=== PATIENT | male | born 1955 | race Hispanic/Latino ===

== ENCOUNTER 2020-04-24 12:00 | Observation (INO) | payer OTHER ==
[~2020-04-24] VITALS: Ht 170.2 cm; Wt 94.9 kg
[~2020-04-24 12:00] MED LIST: ACID REDUCER PO; ASPIRIN EC325 MG PO; DEPO-MEDROL80 MG/ML IM; FLEXERIL PO; LIPITOR40 MG PO; LISINOPRIL20 MG PO; METOPROL TAR25 MG PO; NAPROSYN500 MG PO; NIACIN500 M2 PO; PLAVIX75 MG PO; ULTRAM50 M1 PO
--- NOTE | 2020-04-24 12:20 | NUR ---
PATIENT TO ROOM 14 FOR TRAGE.
--- NOTE | 2020-04-24 12:36 | NUR ---
AT BEDSIDE. CALL GRAHAM IN REACH.
[2020-04-24 13:25] LABS: HEMATOCRIT 47.3 % (39.0-50.0); HEMOGLOBIN 16.1 g/dl (14.0-18.0); IMMATURE GRANULOCYTES 4.1 % (0.0-5.0); MEAN CELL VOLUME 88.4 fL CALC (80.0-100.0); MEAN CORPUSCULAR HGB 30.1 pG CALC (26.0-32.0); NEUT# 7.62 thou/uL (1.82-7.42); RED BLOOD COUNT 5.35 mill/uL (4.70-6.10); RED CELL DISTRI WIDTH 12.2 % (11.5-15.5)
[2020-04-24 13:40] LABS: ALKALINE PHOSPHATASE 91 u/l (38-126); ANION GAP 15 (6-22 (CALC)); BILIRUBIN, TOTAL 1.1 mg/dL (0.0-1.4); BUN 19 mg/dL (8-23); BUN/CREATININE RATIO 26 (12-20 (CALC)); CARBON DIOXIDE 25 mmol/l (22-30); CHLORIDE 95 mmol/l (95-108); CREATININE 0.8 mg/dL (0.7-1.3); GFR > 60 ML/MIN (>=60 (CALC)); GFR FOR AFR.AMER. > 60 ML/MIN (>=60 (CALC)); POTASSIUM 3.8 mmol/l (3.5-5.1); SGOT/AST 49 u/l (19-48); SODIUM 131 mmol/l (137-146)
--- NOTE | 2020-04-24 13:49 | NUR ---
RESTING QUIETLY. CALL GRAHAM IN REACH
[2020-04-24] MEDS ORDERED: FEXOFENADINE180 MG PO (14:17)
[2020-04-24] MEDS ORDERED: PRAVASTATIN20 MG PO (14:17)
[2020-04-24] MEDS ORDERED: HYDROCHLOROT12.5 MG PO (14:18)
--- NOTE | 2020-04-24 14:50 | NUR ---
PATIENT RESTING QUIETLY,AWAITING ADMISSION TO THE FLOOR.
--- NOTE | 2020-04-24 16:15 | NUR ---
Report to [facility] in SBAR format .
--- NOTE | 2020-04-24 16:15 | NUR ---
suni at bedside to evaluate.
--- NOTE | 2020-04-24 16:36 | NUR ---
PT ARRIVED TO [facility] FLOOR ROOM #289 VIA STRETCHER IN STABLE CONDITION ACCOMPANIED BY NURSEJENNIFER;VS AND ASSESSMENT WERE COMPLETED;VS WITHIN NORMAL LIMITS;ALLERGY BAND PLACED ON PT;HEART SOUNDS REGULAR IN RATE AND RHYTHM;LUNG SOUNDS WERE CLEAR THROUGHOUT AND DIMINSHED IN LOWER LOBES;RESPIRATIONS WERE EVEN AND UNLABORED ON RA;NON-PRODUCTIVE COUGH NOTED;PT HAS NO COMPLAINTS OF PAIN OTHER THAN WHEN HE COUGHS, HIS CHEST AND HEAD WILL HURT;NO EDEMA PRESENT;SKIN IS INTACT;TELE IN PLACE;#20G IV IN LAC IS RUNNING NS @100 ML/HR;IV SITE IS PATENT AND FREE OF COMPLICATIONS;SAFETY PRECAUTIONS IN PLACE;CALL LIGHT WITHIN REACH;BED IN LOWEST POSITION;WILL CONTINUE TO MONITOR.
[2020-04-24 17:27] VITALS: BP 131/85
[2020-04-24 19:00] VITALS: BP 116/78
--- NOTE | 2020-04-24 20:58 | NUR ---
PATIENT RESTING IN BED AT THIS TIME AWAKE ALERT AND ORIENTEDX3. PATIENT ON ISOLATION IN NEG PRESSURE ROOM FOR COVID. IVF NS PATENT AND INFUSING VIA LAC SITE AT 100CC/HR. SITE IS HEALTHY AT THIS TIME. TELE MONITOR IN PLACE. O2 VIA NASAL CANNULA APPLIED. O2 SAT ON RA IS 92%. LUNGS ARE CLLEAR AND DIMINISHED IN BASES. ENCOURAGED U SE OF IS Q1H WHILE AWAKE IN REPS OF 10. ENCOURAGED PRONING IF POSSIBLE. PATIENT STATES LAST BM WAS TODAY-NO DIARRHEA. DENIES ANY DIFFICULTY WITH URINATION. MEDICATED FOR DRY COUGH WITH ROBITUSSIN AC 10CC ORDERED. SAFETY PRECAUTIONS REINFORCED. CALL LIGHT IN REACH. WILL CONT TO MONITOR.
[2020-04-25] VITALS: BP 119/77
--- NOTE | 2020-04-25 | NUR ---
PATIENT RESTING IN BED AT THIS TIME WITH O2 VIA NASAL CANNULA IN PLACE. O2 SAT IS NOW 97% WITH O2 ON. TELE IS SR-83 AT THIS TIME. IVF NS PATENT AND INFUSING VIA LAC SITE AT 100CC/HR. STILL WITH NON-PRODUCTIVE EVEN AFTER ROBITUSSIN AC GIVEN. SAFETY PRECAUTIONS REINFORCED. CALL LIGHT IN REACH. WILL CONT TO MONITOR,.
[2020-04-25 04:00] VITALS: BP 137/89
--- NOTE | 2020-04-25 04:00 | NUR ---
PATIENT SITTING UP IN THE RECLINER WITH PERSISTANT DRY HACKING COUGH. O2 SATS ARE IN THE MID-HIGH 80'S. O2 REAPPLIED VIA NASAL CANNULA AT 3LPM. RESPONDED WELL TO LOW NINETY'S. MEDICATED WITH ROBITUSSIN 10CC ORDERED. SAFETY PRECAUTIONS REINFORCED. CALL LIGHT IN REACH. WILL CONT TO MONITOR.
--- NOTE | 2020-04-25 05:45 | NUR ---
PATIENT RESTING IN BED-CONT TO HAVE DRY HACKING COUGH-MEDICATED WITH ROBITUSSIN AC 10CC FOR COUGH. O2 REMAINS IN PLACE AT 2LPM. IVF PATENT AND INFUSING VIA LEFT AC SITE AT 100CC/HR. TELE MONITOR IN PLACE. INSTRUCTED ON U SE OF IS Q1H WHILE AWAKE IN REPS OF 10-ABLE TO DEMONSTRATE PROPER USE OF THE DEVICE. SAFETY PRECAUTIONS REINFORCED. CALL LIGHT IN REACH. WILL CONT TO MONITOR.
[2020-04-25 05:57] LABS: HEMATOCRIT 47.5 % (39.0-50.0); HEMOGLOBIN 15.6 g/dl (14.0-18.0); IMMATURE GRANULOCYTES 3.7 % (0.0-5.0); MEAN CELL VOLUME 90.8 fL CALC (80.0-100.0); MEAN CORPUSCULAR HGB 29.8 pG CALC (26.0-32.0); MEAN CORPUSCULAR HGB CONC 32.8 g/dL CAL (32.0-36.0); NEUT# 4.48 thou/uL (1.82-7.42); RED BLOOD COUNT 5.23 mill/uL (4.70-6.10); RED CELL DISTRI WIDTH 12.2 % (11.5-15.5)
[2020-04-25 06:19] LABS: ALBUMIN 3.4 g/dL (3.2-5.0); ALKALINE PHOSPHATASE 70 u/l (38-126); BUN 21 mg/dL (8-23); BUN/CREATININE RATIO 33 (12-20 (CALC)); C-REACTIVE PROTEIN 6.8 mg/dL (0-0.9); CARBON DIOXIDE 23 mmol/l (22-30); CHLORIDE 102 mmol/l (95-108); CREATININE 0.6 mg/dL (0.7-1.3); GFR > 60 ML/MIN (>=60 (CALC)); GFR FOR AFR.AMER. > 60 ML/MIN (>=60 (CALC)); SGOT/AST 33 u/l (19-48); SODIUM 134 mmol/l (137-146); TOTAL PROTEIN 6.9 g/dL (6.3-8.2)
[2020-04-25 06:33] LABS: ANION GAP 15 (6-22 (CALC)); POTASSIUM 5.6 mmol/l (3.5-5.1)
--- NOTE | 2020-04-25 07:00 | NUR ---
PT REPORT RECEIVED FROM NIGHT NURSEALICE.
[2020-04-25 08:37] VITALS: BP 142/88
--- NOTE | 2020-04-25 08:45 | NUR ---
PT WAS FOUND RESTING IN BED IN SEMI-FOWLERS POSITION;PT IS A&OX3;VS AND ASSESSMENT WERE COMPLETED;VS WERE WITHIN NORMAL LIMITS WITH THE EXCEPTION OF HR 102;MORNING MEDICATIONS WERE GIVEN AT THIS TIME;PT REPORTS NO PAIN;HEART SOUNDS ARE REGULAR IN RATE AND RHYTHM;LUNG SOUNDS ARE CLEAR AND DIMINSHED IN LOWER LOBES;RESPIRATIONS ARE EVEN AND UNLABORED ON 2L O2 VIA NC WITH SAT OF 96%;PT HAS A NON-PRODUCTIVE COUGH NOTED;TELE IS IN PLACE READING SR @65BPM;#20G IV IN LAC RUNNING NS @100ML/HR;IV SITE IS FREE OF COMPLICATIONS;SAFETY PRECAUTIONS IN PLACE;CALL LIGHT WITHIN REACH;BED IN LOWEST POSITON;WILL CONTINUE TO MONITOR.
--- NOTE | 2020-04-25 09:50 | NUR ---
AT BEDSIDE DISCUSSING POC WITH PT.
[2020-04-25 10:43] VITALS: BP 123/74
--- NOTE | 2020-04-25 12:04 | NUR ---
PT WAS FOUND SITTING IN BED EATING LUNCH;PT HAS NO REPORTS OF PAIN AT THIS TIME;O2 VIA NC @2L IS IN PLACE;TELE IS IN PLACE;#20G IV IN LAC IS RUNNING NS @10ML/HR;IV SITE IS FREE OF COMPLICATIONS;SAFETY PRECAUTIONS IN PLACE;CALL LIGHT WIHIN REACH; BED IN LOWEST POSITION;WILL CONTINUE TO MONITOR.
[2020-04-25 14:48] VITALS: BP 147/81
--- NOTE | 2020-04-25 15:35 | NUR ---
PT WAS FOUND RESTING IN BED IN SEMI-FOWLERS POSITION;PT REPORTS NO PAIN;TELE IS IN PLACE;O2 VIA NC @2L IS IN PLACE;#20G IV IN LAC IS RUNNING NS@10ML/HR;IV SITE IS FREE OF COMPLICATIONS;SAFETY PRECAUTIONS IN PLACE;CALL LIGHT WITHIN REACH;BED IN LOWEST POSITION;WILL CONTINUE TO MONITOR.
[2020-04-25 19:00] VITALS: BP 154/86
--- NOTE | 2020-04-25 20:30 | NUR ---
PATIENT RESTING IN BED WATCHING TV WITH O2 VIA NASAL CANNULA IN PLACE AT 2LPM. O2 SAT IS 95% AT THIS TIME. AWAKE ALERT AND ORIENTEDX3. PATIENT ON ISOLATION IN NEG PRESSURE ROOM FOR COVID. TELE MONITOR IN PLACE. PATIENT ENCOURAGED USE OF IS Q1H W/A IN REPS OF 10 AND ABLE TO DEMONSTRATE PROPER USE OF THE DEVICE. LUNGS ARE DIMINISHED BUT CLEAR. NON-PRODUCTIVE COUGH REMAINS-MEDICATED WITH ROBITUSSIN AC 10CC ORDERED FOR COUGH. ENCOURAGED PRONING IF POSSIBLE. IV SITE TO LAC INTACT WITH IVF NS PATENT AND INFUSING AT KVO RATE. SITE REMAINS HEALTHY. SAFETY PRECAUTIONS REINFORCED. CALL LIGHT IN REACH. WILL CONT TO MONITOR.
[2020-04-26 00:13] VITALS: BP 154/90
--- NOTE | 2020-04-26 00:43 | NUR ---
PATIENT RESTING IN BED WITH O2 VIA NASAL CANNULA IN PLACE AT 2LPM. O2 SAT IS 95%. EYES ARE CLOSED. RESPS ARE EVEN AND UNLABORED. TELE MONITOR IN PLACE. IVF PATENT AND INFUSING VIA LAC SITE AT KVO RATE. CALL LIGHT IN REACH. WILL CONT TO MONITOR.
--- NOTE | 2020-04-26 04:30 | NUR ---
PATIENT RESTING IN BED WITH O2 VIA NASAL CANNULA IN PLACE AT 2LPM. EYES ARE CLOSED AND RESPS ARE EVEN AND UNLABORED. TELE MONITOR IN PLACE. IVF PATENT AND INFUSING AT KVO RATE VIA LAC SITE. LESS COUGHING TONIGHT COMPARED TO LAST NIGHT. CALL LIGHT IN REACH. WILL CONT TO MONITOR.
[2020-04-26 05:00] VITALS: BP 152/88
[2020-04-26 06:03] LABS: HEMATOCRIT 42.6 % (39.0-50.0); HEMOGLOBIN 14.2 g/dl (14.0-18.0); IMMATURE GRANULOCYTES 1.5 % (0.0-5.0); MEAN CELL VOLUME 90.4 fL CALC (80.0-100.0); MEAN CORPUSCULAR HGB 30.1 pG CALC (26.0-32.0); MEAN CORPUSCULAR HGB CONC 33.3 g/dL CAL (32.0-36.0); NEUT# 11.45 thou/uL (1.82-7.42); RED BLOOD COUNT 4.71 mill/uL (4.70-6.10); RED CELL DISTRI WIDTH 12.1 % (11.5-15.5)
[2020-04-26 06:45] LABS: ALBUMIN 3.2 g/dL (3.2-5.0); ALKALINE PHOSPHATASE 66 u/l (38-126); BILIRUBIN, TOTAL 0.8 mg/dL (0.0-1.4); BUN 19 mg/dL (8-23); BUN/CREATININE RATIO 30 (12-20 (CALC)); C-REACTIVE PROTEIN 3.8 mg/dL (0-0.9); CARBON DIOXIDE 26 mmol/l (22-30); CHLORIDE 102 mmol/l (95-108); CREATININE 0.6 mg/dL (0.7-1.3); GFR > 60 ML/MIN (>=60 (CALC)); GFR FOR AFR.AMER. > 60 ML/MIN (>=60 (CALC)); SGOT/AST 24 u/l (19-48); SODIUM 137 mmol/l (137-146); TOTAL PROTEIN 6.6 g/dL (6.3-8.2)
[2020-04-26 06:49] LABS: ANION GAP 14 (6-22 (CALC)); POTASSIUM 5.3 mmol/l (3.5-5.1)
[2020-04-26 07:53] VITALS: BP 146/87
--- NOTE | 2020-04-26 08:20 | NUR ---
REPORT RECEIVED FROM BRAULIORN
--- NOTE | 2020-04-26 08:50 | NUR ---
PT RESTING IN SEMI FOWLERS POSITION,A&O X3;PT DENIES ANY CURRENT PAIN OR DISCOMFORTS,PAIN SCALE AND REPORTING EDUCATED;RESPIRATIONS EVEN AND UNLABORED ON O2 @ 2L VIA NC-PT IS NOT OXYGEN DEPENDENT;CLEAR/DIMINISHED LUNG SOUNDS NOTED WITH NON-PRODUCTIVE COUGH;ABDOMAN SOFT ON PALPATION AND ACTIVE IN ALL 4 QUADRANTS;STRONG PEDAL PULSES;SKIN INTACT;TELE MONITORING IN PLACE;#20G TO LAC INFUSING NS @ 10ML/HR,SITE APPEARS HEALTHY;PT REMAINS IN AIR/CONTACT PRECAUTIONS DUE TO COVID19 DX;PT DENIES ANY ADDITIONAL NEEDS AT THIS TIME;ENCOURAGED TO CALL FOR ASSISTANCE IF NEEDED;FALL PRECAUTIONS IN PLACE WITH BED IN THE LWOEST POSITION AND CALL LIGHT IN REACH;WILL CONTINUE TO MONITOR
[2020-04-26 11:14] VITALS: BP 154/85
--- NOTE | 2020-04-26 11:30 | NUR ---
PT RESTING IN SEMI FOWLERS POSITION;RESPIRATIONS EVEN AND UNLABORED ON O2 @ 1L VIA NC, OXYGEN WAS TITRATED DOWN BY MD ON ROUNDS;O2 REMOVED AT THIS TIME;PT DENIES ANY CURRENT PAIN OR DISCOMFORTS;PT REQUEST PRN COUGH MEDICATION, PT TO BE MEDICATED WITH PRN ROBITUSSIN AC PER REQUEST;TELE MONITORING IN PLACE;NS INFUSING WITH EASE TO LAC PER ORDER;PT DENIES ANY ADDITIONAL NEEDS AND IS ENCOURAGED TO CALL FOR ASSISTANCE IF NEEDED;CALL LIGHT IN REACH;WILL CONTINUE TO MONITOR
--- NOTE | 2020-04-26 11:50 | NUR ---
O2 SATS RE-CHECKED ON RA, PT SATING 94%;WILL CONTINUE TO MONITOR
[2020-04-26 15:15] VITALS: BP 154/82
--- NOTE | 2020-04-26 15:45 | NUR ---
PT RESTING IN SEMI FOWLERS POSITION WATCHING TV;RESPIRATIONS EVEN AND UNLABORED ON RA;PT DENIES ANY CURRENT PAIN OR DISCOMFORTS;TELE MONITORING IN PLACE;IV SITE TO LAC PATENT INFUSING NS WITH EASE PER ORDER;PT DENIES ANY ADDITIONAL NEEDS AT THIS TIME;ENCOURAGED TO CALL FOR ASSISTANCE IF NEEDED;CALL LIGHT IN REACH;WILL CONTINUE TO MONITOR
[2020-04-26 19:00] VITALS: BP 156/83
--- NOTE | 2020-04-26 20:05 | NUR ---
PHYSICAL ASSESMENT COMPLETE. PT CURRENTLY DENIES PAIN OR DISCOMFORT. SCHEDULED MEDICATIONS AND PRN MEDICATION ADMINISTERED, SEE E-MAR. PT DENIES ANY NEEDS AT THIS TIME. PLAN OF CARE REVIEWED, PT DENIES QUESTIONS, VERBALIZES UNDERSTANDING. ITEMS WITHIN REACH, BED LOCKED IN LOW POSITION W/ BEDRAILS UP X2. CALL GRAHAM WITHIN REACH, AGREES TO CALL PRN.
[2020-04-27] VITALS: BP 174/92
--- NOTE | 2020-04-27 00:11 | NUR ---
PT LAYING IN BED WITH EYES CLOSED, APPEARS TO BE SLEEPING, APPEARS COMFORTABLE AND IN NO DISTRESS. RESPIRATIONS REGULAR AND UNLABORED. ITEMS REMAIN WITHIN REACH, CALL GRAHAM REMAINS WITHIN REACH. BED REMAINS LOCKED AND IN LOW POSITION WITH BEDRAILS UP X2. WILL CONTINUE TO MONITOR.
[2020-04-27 04:00] VITALS: BP 164/86
--- NOTE | 2020-04-27 04:35 | NUR ---
PT RESTING IN BED, NO SIGNS OF DISTRESS NOTED, RESP EVEN AND UNLABORED. PT VOICES NO NEEDS OR COMPLAINTS AT THIS TIME. CALL LIGHT IN REACH, CONTINUE TO MONITOR.
[2020-04-27 06:00] LABS: HEMATOCRIT 43.7 % (39.0-50.0); HEMOGLOBIN 14.7 g/dl (14.0-18.0); MEAN CELL VOLUME 89.5 fL CALC (80.0-100.0); MEAN CORPUSCULAR HGB 30.1 pG CALC (26.0-32.0); MEAN CORPUSCULAR HGB CONC 33.6 g/dL CAL (32.0-36.0); RED BLOOD COUNT 4.88 mill/uL (4.70-6.10)
[2020-04-27 06:20] LABS: ANION GAP 12 (6-22 (CALC)); BUN 21 mg/dL (8-23); BUN/CREATININE RATIO 32 (12-20 (CALC)); CARBON DIOXIDE 26 mmol/l (22-30); CHLORIDE 101 mmol/l (95-108); CREATININE 0.6 mg/dL (0.7-1.3); GFR > 60 ML/MIN (>=60 (CALC)); GFR FOR AFR.AMER. > 60 ML/MIN (>=60 (CALC)); MAGNESIUM 2.1 mg/dL (1.6-2.3); POTASSIUM 4.6 mmol/l (3.5-5.1); SODIUM 135 mmol/l (137-146)
--- NOTE | 2020-04-27 07:05 | NUR ---
REPORT RECEIVED FROM DESI VENTURA
[2020-04-27 08:39] VITALS: BP 168/93
--- NOTE | 2020-04-27 08:40 | NUR ---
PT RESTING IN SEMI FOWLERS POSITION,A&O X3;VS OBTAINED AND ASSESSMENT COMPLETED;PT DENIES ANY CURRENT PAIN OR DISCOMFORTS,PAIN SCALE AND REPORTING EDUCATED;RESPIRATIONS EVEN AND UNLABORED ON RA,CLEAR/DIMINISHED LUNG SOUNDS NOTED;NON-PRODUCTIVE COUGH,PT MEDICATED WITH PRN ROBITUSSIN AC AT THIS TIME;ABDOMEN SOFT ON PALPATION AND ACTIVE IN ALL 4 QUADRANTS;STRONG PEDAL PULSES;SKIN INTACT;TELE MONITORING IN PLACE;#20G TO LAC INFUSING NS @ 10ML/HR,SITE APPEARS HEALTHY;PT REMAINS IN AIR/CONTACT PRECAUTIONS DUE TO COVID19 DX;PT DENIES ANY ADDITIONAL NEEDS AT THIS TIME;ENCOURAGED TO CALL FOR ASSISTANCE IF NEEDED;FALL PRECAUTIONS IN PLACE WITH BED IN THE LOWEST POSITION AND CALL LIGHT IN REACH;WILL CONTINUE TO MONITOR
--- NOTE | 2020-04-27 09:13 | NUR ---
AT BEDSIDE DISCUSSING POC.
[2020-04-27 10:38] VITALS: BP 151/91
[2020-04-27] MEDS ORDERED: ZITHROMAX250 MG PO (11:14)
[2020-04-27] MEDS ORDERED: DEXAMETHASON6 MG PO (11:14)
--- NOTE | 2020-04-27 11:20 | NUR ---
PT RESTING IN SEMI FOWLERS POSITION;RESPIRATIONS REMAIN EVEN AND UNLABORED ON RA;OXYGEN QUALIFICATION TEST COMPLETED AT THIS TIME PER MD; PT O2 SATS DROPPED TO 95% ON RA, PT TOLERATED WELL;PT RE-POSITIONED BACK INTO BED;PT DENIES ANY CURRENT PAIN OR DISCOMFORTS;TELE MONITORING IN PLACE;#20G TO LAC CONTINUES TO INFUSE NS WITH EASE;PT EDUCATED ON PLAN TO DISCHARGE HOME THIS AFTERNOON AND VERBALIZES UNDERSTANDING;PT DENIES ANY ADDITIONAL NEEDS AT THIS TIME;ENCOURAGED TO CALL FOR ASSISTANCE IF NEEDED;CALL LIGHT IN REACH;WILL CONTINUE TO MONITOR
[2020-04-27] MEDS ORDERED: TESSALON PERLE100 MG PO (11:25)
[2020-04-27] MEDS ORDERED: GUAIFENESIN AC PO (11:31)
[2020-04-27] MEDS ORDERED: AMLODIPINE BESYL5 MG PO (11:57)
--- NOTE | 2020-04-27 13:40 | NUR ---
ALL DISCHARGE INSTRUCTIONS PROVIDED AT THIS TIME;PT INSRUCTED TO F/U WITH PCP IN THE NEXT WEEK, TAKE ORAL ABX FOR 5 MORE DAYS AND STEROID FOR 8 MORE DAYS, RX FOR TESSLON SENT TO [facility] AND PT EDUCATED ON TAKING THEM FIRST FOR COUGH, IF INEFFECTIVE RX PROVIDED FOR ROBITUSSIN AC;RETURN TO ER IF NEW OR WORSE SYMPTOMS;PT VERBALIZES UNDERSTANDING AND DENIES ANY ADDITIONAL QUESTIONS OR NEEDS;IV SITE REMOVED WITH CATHETER INTACT AND TELE D/C;WHEELCHAIR TO BE PROVIDED FOR D/C HOME;[facility]OUSE TO TRANSPORT PT HOME;WILL CONTINUE TO MONITOR
--- NOTE | 2020-04-27 13:48 | NUR ---
Discharge instructions given. Patient verbalizes understanding of same. Discharged in stable condition via Wheelchair to Home with spouse. All belongings sent with pt. PT TRANSPORTED TO [facility] IN STABLE CONDITION VIA WHEELCHAIR ACCOMPANIED BY SELVIN ORTIZ.ALL BELONINGS LEFT WITH PT INCLUDING RX FOR ROBITUSSIN AC;SPOUSE TO TRANSPORT PT HOME.
== END 2020-04-27 13:49 | disposition home or self-care (01) | DRG 177 ==
LOC: ED 12:00 → ED-I 13:40 → ED 13:51 → ED-I 13:52 → MS2 13:52
PROVIDERS: Family Medicine; Nurse Practitioner; ADMIT Internal Medicine; ATTEND Internal Medicine
DX: U07.1 COVID-19 (principal); J12.82 Pneumonia due to coronavirus disease 2019; R09.02 Hypoxemia; I10 Essential (primary) hypertension; E78.5 Hyperlipidemia, unspecified; I25.10 Atherosclerotic heart disease of native coronary artery without angina pectoris; K21.9 Gastro-esophageal reflux disease without esophagitis; Z95.5 Presence of coronary angioplasty implant and graft
CPT/HCPCS: G0378; J1650

== ENCOUNTER 2022-02-08 16:18 | Emergency (ER) | payer MEDICARE ==
[~2022-02-08] VITALS: Ht 170.2 cm; Wt 92.9 kg
[~2022-02-08 16:18] MED LIST changes: +AMLODIPINE BESYL5 MG PO; +DEXAMETHASON6 MG PO; +FEXOFENADINE180 MG PO; +GUAIFENESIN AC PO; +HYDROCHLOROT12.5 MG PO; +PRAVASTATIN20 MG PO; +TESSALON PERLE100 MG PO; +ZITHROMAX250 MG PO
[2022-02-08 18:42] LABS: HEMATOCRIT 41.5 % (39.0-50.0); IMMATURE GRANULOCYTES 0.1 % (0.0-5.0); MEAN CELL VOLUME 89.1 fL CALC (80.0-100.0); MEAN CORPUSCULAR HGB CONC 33.7 g/dL CAL (32.0-36.0); NEUT# 4.88 thou/uL (1.82-7.42); RED BLOOD COUNT 4.66 mill/uL (4.70-6.10)
[2022-02-08 18:54] LABS: ALBUMIN 4.4 g/dL (3.2-5.0); ALKALINE PHOSPHATASE 123 u/l (38-126); ANION GAP 12 (6-22 (CALC)); BILIRUBIN, TOTAL 0.7 mg/dL (0.0-1.4); BUN 21 mg/dL (8-23); BUN/CREATININE RATIO 25 (12-20 (CALC)); CARBON DIOXIDE 30 mmol/l (22-30); CHLORIDE 99 mmol/l (95-108); CREATININE 0.8 mg/dL (0.7-1.3); GFR FOR AFR.AMER. > 60 ML/MIN (>=60 (CALC)); GFR OTHER RACES > 60 ML/MIN (>=60 (CALC)); LIPASE 282 u/l (23-300); POTASSIUM 4.1 mmol/l (3.5-5.1); SGOT/AST 30 u/l (19-48); SODIUM 137 mmol/l (137-146); TOTAL PROTEIN 7.8 g/dL (6.3-8.2)
[2022-02-08 19:43] LABS: URINE BILIRUBIN - DIPSTICK NEGATIVE (NEGATIVE); URINE BLOOD DIPSTICK NEGATIVE (NEGATIVE); URINE COLOR YELLOW; URINE GLUCOSE - DIPSTICK NEGATIVE (NEGATIVE); URINE KETONE NEGATIVE (NEGATIVE); URINE LEUK ESTERASE NEGATIVE (NEGATIVE); URINE PROTEIN - DIPSTICK NEGATIVE (NEG-TRACE); URINE SPECIFIC GRAVITY 1.015; URINE UROBILINOGEN - DIPSTICK 0.2 E.U./dL (0.2)
[2022-02-08 19:52] LABS: URINE NITRITE - DIPSTICK NEGATIVE (Negative)
[2022-02-08] MEDS ORDERED: NAPROXEN500 MG PO (20:55)
[2022-02-08] MEDS ORDERED: DICYCLOMINE10 MG PO (20:55)
[2022-02-08 21:09] VITALS: BP 131/74
== END 2022-02-08 21:09 | disposition home or self-care (01) ==
LOC: ED 16:18
PROVIDERS: Family Medicine
DX: R10.31 Right lower quadrant pain (principal); I10 Essential (primary) hypertension; E78.5 Hyperlipidemia, unspecified; Z95.5 Presence of coronary angioplasty implant and graft
CPT/HCPCS: Q9967